=== PATIENT | male | born 1990 | race Caucasian/White ===

== ENCOUNTER → 2016-11-24 | Outpatient (REF) | payer OTHER ==
[2016-11-24 14:17] LABS: IMMMOTILE SPERM CENTRIFUGED ABSENT (ABSENT); IMMOTILE SPERM ABSENT (ABSENT); MOTILE SPERM ABSENT (ABSENT); MOTILE SPERM CENTRIFUGED ABSENT (ABSENT)
== END ==
LOC: M SMT 14:04
PROVIDERS: ATTEND Urology
DX: Z30.2 Encounter for sterilization (principal)

== ENCOUNTER → 2017-02-08 | Outpatient (CLI) | payer OTHER ==
--- NOTE | 2017-02-08 13:23 | REP ---
SCROTAL ULTRASOUND: Real-time sonographic evaluation of the scrotum and contents is performed. Testicles are normal in size and echotexture, right testicle measuring 4.8 x 2.5 x 3.2 cm and left testicle 4.4 x 2.0 x 3.3 cm. There is no testicular mass or torsion. Blood flow is seen in each testicle with duplex Doppler evaluation, RI of the right testicle 0.41 and left testicle 0.56. There is a nodule in the right inguinal canal which measures 1.1 x 0.9 x 0.9 cm which is mildly heterogeneous. This appears to be related to the right spermatic cord. No fluid collection is seen. IMPRESSION: Palpable abnormality corresponds to a soft tissue nodule in the region of the right inguinal canal and spermatic cord measuring 1.1 x 0.9 x 0.9 cm. The finding is nonspecific. This may represent a lipoma but other neoplasm is not excluded. Signed by Joseph Craven MD 02/08/2017 03:31 P
== END ==
LOC: M RAD 12:05
PROVIDERS: ATTEND Physician Assistant
DX: N50.819 Testicular pain, unspecified (principal)